=== PATIENT | male | born 1950 | race Caucasian/White ===

== ENCOUNTER 2024-04-18 01:50 | Inpatient (IN) ==
[2024-04-18] MEDS: Morphine 4 MG/ML VIAL (1 ml) IV ONE (02:43)
[2024-04-18 03:02] LABS: ABS Lymphocytes 0.5 10^3/uL (1.0-4.8); ABS Monocytes 1.1 10^3/uL (0.0-1.1); ABS Neutrophils 8.8 10^3/uL (1.5-7.6); Eosinophil % 0.1 %; Hematocrit 44.3 % (38-53); Hemoglobin 15.1 g/dL (13.2-16.3); Lymphocyte % 4.8 %; Mean Corpuscular Hemoglobin 30.4 pg (27-33); Mean Corpuscular Hgb Conc 34.1 g/dL (31-36); Mean Corpuscular Volume 89.2 fL (80-97); Mean Platelet Volume 7.7 fL (7.5-11.2); Platelet Count 176 10^3/uL (150-450); Red Blood Count 4.97 10^6/uL (4.06-5.63); Red Cell Distribution Width 14.6 % (12-17); White Blood Count 10.5 10^3/uL (3.6-10.2)
[2024-04-18 03:04] LABS: Urine Appearance Clear; Urine Bilirubin Negative (Negative); Urine Blood 1+ (Negative); Urine Color Yellow; Urine Glucose Negative (Negative); Urine Ketones 1+ (Negative); Urine Nitrite 1+ (Negative); Urine Protein Negative (Negative); Urine Specific Gravity 1.021 (1.002-1.030); Urine Urobilinogen Negative (Negative); Urine pH 6.5 (5.0-8.0)
[2024-04-18 03:06] LABS: Urine Bacteria Absent /HPF (Absent); Urine Red Blood Cell 3+(>10/hpf) /HPF (0-Trace); Urine White Blood Cell Trace(0-5/hpf) /HPF (0-Trace)
[2024-04-18 03:55] LABS: ALT 21 U/L (7-52); Albumin 3.1 g/dL (3.2-5.2); Albumin/Globulin Ratio 1.6 (1-3); Alkaline Phosphatase 49 U/L (35-149); Anion Gap 5 mmol/L (2-16); Blood Urea Nitrogen 23 mg/dL (6-24); CO2 Carbon Dioxide 23 mmol/L (22-32); Calcium 7.7 mg/dL (8.6-10.3); Chloride 110 mmol/L (101-111); Creatinine, Serum 1.08 mg/dL (0.67-1.17); Glucose 94 mg/dL (70-100); Sodium 138 mmol/L (135-145); Total Bilirubin 1.9 mg/dL (0.2-1.0); Total Protein 5.1 g/dL (6.4-8.9); eGFR CKD-EPI 71.6 (>60)
[2024-04-18] MEDS: Acetaminophen IV 1 GM/100ML 1,000 MG/100 ML BAG IV ONE (04:05)
[2024-04-18 05:28] LABS: Erythrocyte Sed Rate 15 mm/Hr (0-19)
[2024-04-18] MEDS: cefTRIAXone 1 gm/50 mL D5W 1 GM/50 ML BAG IV ONE (08:24)
[2024-04-18] MEDS: Gadoteridol (CONTRAST) 279.3 MG/ML 10 ML IV ONE (12:35)
[2024-04-18] MEDS: Ondansetron 4 mg VIAL 2 MG/ML 2 ml VIAL IV ONE (13:42)
[2024-04-18] MEDS: HYDROmorphone 0.5 MG/0.5 ML SYRINGE IV ONE (13:42)
[2024-04-18] MEDS: Vancomycin 2,000 MG in NS 0.9% 500 ml BAG 500 ML IVPB ONE (14:11)
[2024-04-18] MEDS: NS 0.9% 1000 ml BAG 1,000 ML IV ONE (15:14)
[2024-04-18] MEDS ORDERED: Morphine 2 MG/ML SYRINGE IV PRN (15:36)
[2024-04-18] MEDS ORDERED: Vancomycin per Pharmacy 1 EA NOTE FOLLOW UP SCH (16:00)
[2024-04-18] MEDS: Polyethylene Glycol 3350 17 GM PACKET PO SCH (17:08)
[2024-04-18] MEDS: Enoxaparin 40 MG/0.4 ML SYR SUBCUT SCH (18:53)
[2024-04-18] MEDS: Senna TAB 8.6 mg TAB PO SCH (21:09)
[2024-04-19] MEDS ORDERED: Vancomycin 1000 MG in NS 0.9% 250 ML IVPB SCH (02:00)
[2024-04-19] MEDS: Vancomycin 1000 MG in NS 0.9% 250 ML IVPB SCH (02:06)
[2024-04-19] MEDS ORDERED: cefTRIAXone 1 gm/50 mL D5W 1 GM/50 ML BAG IV SCH (08:00)
[2024-04-19] MEDS: cefTRIAXone 1 gm/50 mL D5W 1 GM/50 ML BAG IV SCH (08:12)
[2024-04-19] MEDS: Magnesium Hydroxide LIQ 30 ML UDC PO SCH (10:43)
[2024-04-19] MEDS: Ondansetron 4 mg VIAL 2 MG/ML 2 ml VIAL IV PRN (12:01)
[2024-04-20 06:22] LABS: ABS Eosinophils 0.1 10^3/uL (0.0-0.5); ABS Lymphocytes 1.1 10^3/uL (1.0-4.8); ABS Monocytes 0.8 10^3/uL (0.0-1.1); ABS Neutrophils 3.6 10^3/uL (1.5-7.6); Eosinophil % 1.5 %; Hemoglobin 14.4 g/dL (13.2-16.3); Lymphocyte % 19.5 %; Mean Corpuscular Hemoglobin 30.7 pg (27-33); Mean Corpuscular Hgb Conc 34.3 g/dL (31-36); Mean Corpuscular Volume 89.5 fL (80-97); Nucleated Red Blood Cells % 0.1 %/100WBC (0.0-0.8); Platelet Count 194 10^3/uL (150-450); Red Blood Count 4.69 10^6/uL (4.06-5.63); Red Cell Distribution Width 14.5 % (12-17); White Blood Count 5.5 10^3/uL (3.6-10.2)
[2024-04-20 06:41] LABS: Calcium 8.2 mg/dL (8.6-10.3); Creatinine, Serum 1.02 mg/dL (0.67-1.17); Magnesium 2.2 mg/dL (1.9-2.7); Potassium 4.5 mmol/L (3.5-5.0); eGFR CKD-EPI 76.6 (>60)
[2024-04-20] MEDS: Vancomycin Trough Check NOTE FOLLOW UP ONE (13:36)
[2024-04-21 06:31] LABS: Creatinine, Serum 0.93 mg/dL (0.67-1.17); eGFR CKD-EPI 85.6 (>60)
[2024-04-21] MEDS: cefTRIAXone 2 gm/50 mL D5W 2 GM/50 ML BAG IV SCH (07:56)
[2024-04-21] MEDS: Sodium Phosphate ADULT ENEMA 133 ML BTL PR ONE (09:04)
[2024-04-21] MEDS: Lidocaine PATCH 5% PATCH TRANSDERM SCH (14:03)
[2024-04-21] MEDS: Sulfur Hexaflouride MICROSPHR 25 MG VIAL IV ONE (14:04)
[2024-04-22] MEDS: Magnesium Hydroxide LIQ 30 ML UDC PO PRN (04:51)
[2024-04-22 06:18] LABS: ABS Eosinophils 0.3 10^3/uL (0.0-0.5); ABS Lymphocytes 1.2 10^3/uL (1.0-4.8); ABS Monocytes 0.9 10^3/uL (0.0-1.1); ABS Neutrophils 3.8 10^3/uL (1.5-7.6); ABS Nucleated RBC 0.01 10^3/ul; Eosinophil % 4.8 %; Hematocrit 42.4 % (38-53); Hemoglobin 14.4 g/dL (13.2-16.3); Lymphocyte % 19.4 %; Mean Corpuscular Hgb Conc 33.9 g/dL (31-36); Mean Corpuscular Volume 88.3 fL (80-97); Mean Platelet Volume 7.1 fL (7.5-11.2); Nucleated Red Blood Cells % 0.1 %/100WBC (0.0-0.8); Platelet Count 248 10^3/uL (150-450); White Blood Count 6.4 10^3/uL (3.6-10.2)
[2024-04-22 06:58] LABS: Calcium 8.4 mg/dL (8.6-10.3); Creatinine, Serum 0.81 mg/dL (0.67-1.17); Magnesium 2.1 mg/dL (1.9-2.7); Potassium 4.1 mmol/L (3.5-5.0); eGFR CKD-EPI 91.9 (>60)
[2024-04-22] MEDS: Gadoteridol (CONTRAST) 279.3 MG/ML 10 ML IV ONE (12:01)
[2024-04-22] MEDS: SMOG Enema (MgOH-NS-Gly-MinO) 330 ML ENEMA PR ONE (16:55)
[2024-04-23 07:56] LABS: ABS Eosinophils 0.3 10^3/uL (0.0-0.5); ABS Lymphocytes 1.1 10^3/uL (1.0-4.8); ABS Neutrophils 4.5 10^3/uL (1.5-7.6); ABS Nucleated RBC 0.01 10^3/ul; Eosinophil % 3.9 %; Hematocrit 43.1 % (38-53); Hemoglobin 14.9 g/dL (13.2-16.3); Lymphocyte % 16.4 %; Mean Corpuscular Hemoglobin 30.7 pg (27-33); Mean Corpuscular Hgb Conc 34.6 g/dL (31-36); Mean Corpuscular Volume 88.7 fL (80-97); Mean Platelet Volume 6.9 fL (7.5-11.2); Nucleated Red Blood Cells % 0.1 %/100WBC (0.0-0.8); Platelet Count 276 10^3/uL (150-450); Red Blood Count 4.86 10^6/uL (4.06-5.63)
[2024-04-23 08:39] LABS: Calcium 8.5 mg/dL (8.6-10.3); Creatinine, Serum 0.81 mg/dL (0.67-1.17); Potassium 4.2 mmol/L (3.5-5.0); eGFR CKD-EPI 91.9 (>60)
[2024-04-23] MEDS: Vancomycin Trough Check NOTE FOLLOW UP ONE (15:32)
[2024-04-24] MEDS: HYDROmorphone 1 MG/1 ML SYRINGE IV SLOW PU ONE (05:54)
[2024-04-24 06:43] LABS: ABS Eosinophils 0.3 10^3/uL (0.0-0.5); ABS Lymphocytes 1.5 10^3/uL (1.0-4.8); ABS Monocytes 1.3 10^3/uL (0.0-1.1); ABS Neutrophils 5.8 10^3/uL (1.5-7.6); ABS Nucleated RBC 0.01 10^3/ul; Eosinophil % 3.7 %; Hemoglobin 14.8 g/dL (13.2-16.3); Lymphocyte % 16.5 %; Mean Corpuscular Hemoglobin 30.1 pg (27-33); Mean Corpuscular Hgb Conc 34.3 g/dL (31-36); Mean Corpuscular Volume 87.6 fL (80-97); Mean Platelet Volume 6.9 fL (7.5-11.2); Nucleated Red Blood Cells % 0.1 %/100WBC (0.0-0.8); Platelet Count 332 10^3/uL (150-450); Red Blood Count 4.91 10^6/uL (4.06-5.63); Red Cell Distribution Width 13.7 % (12-17)
[2024-04-24 06:57] LABS: Calcium 8.6 mg/dL (8.6-10.3); Creatinine, Serum 0.78 mg/dL (0.67-1.17); Magnesium 1.9 mg/dL (1.9-2.7); Potassium 4.3 mmol/L (3.5-5.0)
[2024-04-24] MEDS: Magnesium Sulfate 2 gm BAG 2 GM/50 ML BAG IVPB ONE (08:10)
[2024-04-24] MEDS: Calcium Carb (TUMS) 500 mg CHEW TAB PO ONE (20:12)
[2024-04-24] MEDS: Calcium Carb (TUMS) 500 mg CHEW TAB ONE (20:43)
[2024-04-25 07:01] LABS: Creatinine, Serum 0.87 mg/dL (0.67-1.17)
[2024-04-25] MEDS ORDERED: Flumazenil 0.5 mg/5 ml 0.1 MG/ML 5 ml VIAL ONE (08:44)
[2024-04-25] MEDS ORDERED: Naloxone 0.4 mg VIAL 0.4 mg/ml 1 ml VIAL ONE (08:44)
[2024-04-25] MEDS ORDERED: fentaNYL 100 mcg/2 ml 50 MCG/ML VIAL ONE (08:44)
[2024-04-25] MEDS ORDERED: Midazolam 5 mg/5 ml VIAL 1 mg/ml 5 ml VIAL (5 mg) ONE (08:45)
[2024-04-25] MEDS ORDERED: Naloxone 0.4 mg VIAL 0.4 mg/ml 1 ml VIAL IV PUSH PRN (09:15)
[2024-04-25] MEDS ORDERED: Flumazenil 0.5 mg/5 ml 0.1 MG/ML 5 ml VIAL IV PRN (09:15)
[2024-04-25] MEDS: Midazolam 10 mg/10 ml VIAL 1 mg/ml 10 ml VIAL (10 mg) IV SLOW PU ONE (10:25)
[2024-04-25] MEDS: fentaNYL 100 mcg/2 ml 50 MCG/ML VIAL IV SLOW PU ONE (10:25)
[2024-04-25] MEDS: NS 0.9% 1000 ml BAG 1,000 ML IV ONE (11:02)
[2024-04-25 14:11] LABS: C Reactive Protein 94.4 mg/L (<8.01)
[2024-04-25] MEDS: Magnesium Hydroxide LIQ 30 ML UDC PO SCH (14:47)
[2024-04-26 06:25] LABS: Hemoglobin 14.6 g/dL (13.2-16.3); Mean Corpuscular Hemoglobin 30.2 pg (27-33); Mean Corpuscular Hgb Conc 33.9 g/dL (31-36); Mean Platelet Volume 6.8 fL (7.5-11.2); Platelet Count 402 10^3/uL (150-450); Red Blood Count 4.83 10^6/uL (4.06-5.63); Red Cell Distribution Width 14.1 % (12-17); White Blood Count 9.9 10^3/uL (3.6-10.2)
[2024-04-26 06:48] LABS: Calcium 8.9 mg/dL (8.6-10.3); Creatinine, Serum 0.96 mg/dL (0.67-1.17); Magnesium 2.3 mg/dL (1.9-2.7); Potassium 4.7 mmol/L (3.5-5.0); eGFR CKD-EPI 82.4 (>60)
[2024-04-26 09:08] VITALS: BP 143/87
[2024-04-26] MEDS ORDERED: Vancomycin Trough Check NOTE FOLLOW UP ONE (13:30)
== END 2024-04-26 09:55 | DRG 871 ==
LOC: EDHOLD 01:50 → ED 01:50 → EDHOLD 16:19 → SSU 04-19 00:11 → SUATTDRO 04-19 11:45 → MED 04-21 22:36
PROVIDERS: ADMIT Hospitalist; ATTEND Student in an Organized Health Care Education/Training Program

== ENCOUNTER 2024-04-25 08:10 | Inpatient (IN) ==
[2024-04-26] MEDS: Lactated Ringers 1000 ml BAG 1,000 ML IV ONE (12:50)
[2024-04-26] MEDS ORDERED: Vancomycin per Pharmacy 1 EA NOTE FOLLOW UP PRN (15:17)
[2024-04-26] MEDS: Vancomycin Trough Check NOTE FOLLOW UP ONE (15:19)
[2024-04-26] MEDS: Vancomycin 1,000 MG in NS 0.9% 250 ml 250 ML IVPB SCH (15:20)
[2024-04-26] MEDS: Vancomycin 1,250 MG in NS 0.9% 250 ml 250 ML IVPB SCH (16:24)
[2024-04-26] MEDS: Enoxaparin 40 MG/0.4 ML SYR SUBCUT SCH (18:10)
[2024-04-27 06:10] LABS: ABS Eosinophils 0.2 10^3/uL (0.0-0.5); ABS Lymphocytes 1.8 10^3/uL (1.0-4.8); ABS Monocytes 1.1 10^3/uL (0.0-1.1); ABS Neutrophils 5.1 10^3/uL (1.5-7.6); Eosinophil % 2.7 %; Hematocrit 42.8 % (38-53); Hemoglobin 14.7 g/dL (13.2-16.3); Lymphocyte % 22.1 %; Mean Corpuscular Hemoglobin 30.6 pg (27-33); Mean Corpuscular Hgb Conc 34.4 g/dL (31-36); Mean Corpuscular Volume 89.1 fL (80-97); Mean Platelet Volume 6.9 fL (7.5-11.2); Platelet Count 392 10^3/uL (150-450); Red Cell Distribution Width 14.1 % (12-17); White Blood Count 8.4 10^3/uL (3.6-10.2)
[2024-04-27 06:29] LABS: Albumin 3.3 g/dL (3.2-5.2); Albumin/Globulin Ratio 1.4 (1-3); C Reactive Protein 60.16 mg/L (<8.01); Calcium 8.8 mg/dL (8.6-10.3); Creatinine, Serum 0.92 mg/dL (0.67-1.17); Globulin 2.4 g/dL (2-4); Potassium 4.5 mmol/L (3.5-5.0); Total Protein 5.7 g/dL (6.4-8.9); eGFR CKD-EPI 86.7 (>60)
[2024-04-28] MEDS: Vancomycin Trough Check NOTE FOLLOW UP ONE (18:18)
[2024-04-29 18:39] LABS: Urine Appearance Turbid; Urine Bilirubin Negative (Negative); Urine Blood Trace (Negative); Urine Color Yellow; Urine Glucose Negative (Negative); Urine Ketones Negative (Negative); Urine Nitrite Negative (Negative); Urine Protein Trace (Negative); Urine Specific Gravity 1.017 (1.002-1.030); Urine Urobilinogen Negative (Negative)
[2024-05-02] MEDS: oxyCODONE SR 15 mg TAB PO ONE (21:27)
[2024-05-03] MEDS: oxyCODONE SR 15 mg TAB PO SCH (08:41)
[2024-05-04 06:47] LABS: ABS Basophils 0.1 10^3/uL (0.0-0.1); ABS Eosinophils 0.4 10^3/uL (0.0-0.5); ABS Lymphocytes 1.7 10^3/uL (1.0-4.8); ABS Monocytes 0.8 10^3/uL (0.0-1.1); ABS Neutrophils 2.8 10^3/uL (1.5-7.6); Eosinophil % 6.3 %; Hematocrit 41.2 % (38-53); Hemoglobin 14.3 g/dL (13.2-16.3); Lymphocyte % 29.5 %; Mean Corpuscular Hemoglobin 30.8 pg (27-33); Mean Corpuscular Hgb Conc 34.6 g/dL (31-36); Mean Corpuscular Volume 89.1 fL (80-97); Platelet Count 434 10^3/uL (150-450); Red Blood Count 4.62 10^6/uL (4.06-5.63); Red Cell Distribution Width 14.2 % (12-17); White Blood Count 5.8 10^3/uL (3.6-10.2)
[2024-05-04 08:14] LABS: Albumin 3.5 g/dL (3.2-5.2); Albumin/Globulin Ratio 1.6 (1-3); C Reactive Protein 23.22 mg/L (<8.01); Creatinine, Serum 0.97 mg/dL (0.67-1.17); Globulin 2.2 g/dL (2-4); Potassium 4.8 mmol/L (3.5-5.0); Total Bilirubin 0.6 mg/dL (0.2-1.0); Total Protein 5.7 g/dL (6.4-8.9); eGFR CKD-EPI 81.4 (>60)
[2024-05-04] MEDS: Magnesium Hydroxide LIQ 30 ML UDC PO PRN (08:40)
[2024-05-04] MEDS: Senna TAB 8.6 mg TAB PO PRN (19:49)
[2024-05-05] MEDS: Vancomycin Trough Check NOTE FOLLOW UP ONE (18:28)
[2024-05-05] MEDS: Vancomycin 1000 MG in NS 0.9% 250 ML IVPB SCH (18:38)
[2024-05-05] MEDS: oxyCODONE SR 20 mg TAB PO SCH (20:38)
[2024-05-05] MEDS: Alteplase (CATHFLO) 2 MG VIAL IV ONE (20:50)
[2024-05-06] MEDS: Polyethylene Glycol 3350 17 GM PACKET PO SCH (13:48)
[2024-05-06] MEDS: Senna TAB 8.6 mg TAB PO SCH (13:50)
[2024-05-07] MEDS: Lactulose 30 ml UDC PO SCH (09:04)
[2024-05-07] MEDS: Mineral Oil ENEMA 118 ML/BOTTLE BOTTLE PR PRN (14:46)
[2024-05-08] MEDS ORDERED: Lactulose 30 ml UDC PO PRN (08:24)
[2024-05-08] MEDS: Vancomycin 1,750 MG in NS 0.9% 500 ml BAG 500 ML IVPB SCH (11:48)
[2024-05-10 07:03] VITALS: BP 145/96
[2024-05-10] MEDS: Vancomycin Trough Check NOTE FOLLOW UP ONE (10:12)
== END 2024-05-10 11:23 | DRG 551 ==
LOC: PMRU 04-26 10:11
PROVIDERS: ADMIT Physical Medicine & Rehabilitation; ATTEND Physical Medicine & Rehabilitation